=== PATIENT | male | born 1955 | race Two or more races ===

== ENCOUNTER 2016-05-08 11:20 | Emergency (ER) | payer OTHER ==
[~2016-05-08] VITALS: Ht 160 cm; Wt 68.0 kg
[~2016-05-08 11:20] MED LIST: ASPI81TA2 PO; ATEN25TA PO; ATOR80TA PO; CLOP75TA2 PO; LOSA25TA13 PO
--- NOTE | 2016-05-08 11:30 | NUR ---
BIB SON, CC: RIGHT LOWER ABDOMINAL PAIN, CT:05/01: NO ACUTE ABNORMALITY. NAD NOTED. SEEN BY MD AT BS. VSS. DENIES TRAUMA. SAFETY AND COMFORT MEASURES PROVIDED. WILL MONITOR.
[2016-05-08] MEDS ORDERED: TRAM50TA2 PO (11:42)
[2016-05-08] MEDS ORDERED: IBUP-23 PO (11:42)
--- NOTE | 2016-05-08 11:48 | NUR ---
EKG DONE AT BS.
[2016-05-08 11:55] LABS: BASOPHILS # (AUTO) 0.1 /CMM (0.0-0.2); BASOPHILS % (AUTO) 0.7 % (0.0-2.0); EOSINOPHILS # (AUTO) 0.3 /CMM (0.0-0.7); EOSINOPHILS % (AUTO) 4.1 % (0.0-6.0); HEMATOCRIT 46 % (39-51); HEMOGLOBIN 14.7 g/dL (13.5-17.5); LYMPHOCYTES # (AUTO) 2.1 /CMM (0.8-4.8); LYMPHOCYTES % (AUTO) 28.7 % (20.0-44.0); MEAN CORPUSCULAR HEMOGLOBIN 26 PG (26.0-33.0); MEAN CORPUSCULAR HGB CONC 32 g/dl (31.0-36.0); MEAN CORPUSCULAR VOLUME 83 fL (80-96); MONOCYTES # (AUTO) 0.6 /CMM (0.1-1.30); MONOCYTES % (AUTO) 7.7 % (2.0-12.0); NEUTROPHILS # (AUTO) 4.1 /CMM (1.8-8.9); NEUTROPHILS % (AUTO) 58.8 % (43.0-81.0); PLATELET COUNT (AUTO) 230 /CMM (150-450); RDW COEFFICIENT OF VARIATION 14.2 (11.5-15.0); RED BLOOD CELL COUNT(AUTO) 5.59 MIL/uL (4.5-6.0); WHITE BLOOD COUNT (AUTO) 7.2 K/uL (4.3-11.0)
[2016-05-08 12:05] LABS: CALCIUM, SERUM 9.4 mg/dL (8.5-10.1); CARBON DIOXIDE 28 mmol/L (21-32); CHLORIDE 104 mmol/L (98-107); CREATININE 1.2 mg/dL (0.6-1.3); GFR 62 mL/min (>60); GLUCOSE 97 mg/dL (74-106); POTASSIUM 4.4 mmol/L (3.5-5.1); SODIUM SERUM 139 mmol/L (136-145); UREA NITROGEN, BLOOD 15 mg/dL (7-18)
[2016-05-08 12:09] LABS: INR 0.96 (0.87-1.13)
[2016-05-08 12:11] LABS: ALANINE AMINOTRANSFERASE 24 U/L (12-78); ALBUMIN 3.7 g/dL (3.4-5.0); ALKALINE PHOSPHATASE 60 U/L (46-116); ASPARTATE AMINOTRANSFERASE 20 U/L (15-37); BILIRUBIN,DIRECT 0.1 mg/dL (0.0-0.2); BILIRUBIN,TOTAL 0.7 mg/dL (0.2-1.0); LIPASE 455 U/L (73-393)
[2016-05-08 12:13] LABS: TROPONIN I < 0.017 ng/mL (0.00-0.056)
--- NOTE | 2016-05-08 12:17 | NUR ---
URINE SAMPLE OBTAINED, SENT.
[2016-05-08 12:23] LABS: APPEARANCE,URINE Clear (CLEAR); BILIRUBIN,URINE Negative (NEGATIVE); BLOOD, URINE Negative Ery/uL (NEGATIVE); COLOR,URINE Light yellow (YELLOW); KETONES,URINE Negative (NEGATIVE); LEUKOCYTE ESTERASE ,URINE Negative (NEGATIVE); NITRITE, URINE Negative (NEGATIVE); PH,URINE 6.5 (5.0-8.0); PROTEIN,URINE Negative (NEGATIVE); UGLUCOSE Negative (NEGATIVE); UROBILINOGEN,URINE 0.2 EU/dL (0.2)
[2016-05-08 13:01] VITALS: BP 148/80
--- NOTE | 2016-05-08 13:01 | NUR ---
Patient discharged to home in stable condition. Written and verbal after care instructions given. Patient verbalizes understanding of instruction.
== END 2016-05-08 13:02 | disposition home or self-care (01) ==
LOC: ER 11:22
DX: R10.31 Right lower quadrant pain (principal); I10 Essential (primary) hypertension; F17.200 Nicotine dependence, unspecified, uncomplicated; Z95.5 Presence of coronary angioplasty implant and graft; Z79.82 Long term (current) use of aspirin
CPT/HCPCS: 36415; 80048; 80076; 81001; 83690; 84484; 85025; 85730; 93005; 99285; A4606; Z7610; 81000-TC

== ENCOUNTER 2017-02-17 10:44 | Emergency (ER) | payer OTHER ==
[~2017-02-17] VITALS: Ht 154.9 cm; Wt 59.0 kg
[~2017-02-17 10:44] MED LIST changes: +ASPI-1169 PO; -ASPI81TA2 PO; -CLOP75TA2 PO; +IBUP-23 PO; +TRAM50TA2 PO
--- NOTE | 2017-02-17 11:30 | NUR ---
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 PATIENT IS AFEBRILE. VSS
[2017-02-17] MEDS ORDERED: IBUPROFEN 600 MG TABLET PO ONE ×2 (12:27→12:30)
[2017-02-17] MEDS ORDERED: IPRATROPIUM NEB FS 0.5 MG/2.5 ML AMPUL.NEB NEB ONE (13:00)
[2017-02-17] MEDS ORDERED: ALBUTEROL FS 2.5 MG/3 ML VIAL.NEB NEB ONE (13:00)
[2017-02-17] MEDS ORDERED: ALBUTEROL FS 2.5 MG/3 ML VIAL.NEB ONE (13:01)
[2017-02-17] MEDS ORDERED: IPRATROPIUM NEB FS 0.5 MG/2.5 ML AMPUL.NEB ONE (13:01)
--- NOTE | 2017-02-17 13:19 | NUR ---
RT AWARE OF BREATHING TX
--- NOTE | 2017-02-17 13:38 | NUR ---
Patient discharged to home in stable condition. Written and verbal after care instructions given. Patient verbalizes understanding of instruction.
[2017-02-17 13:39] VITALS: BP 114/77
== END 2017-02-17 13:41 | disposition home or self-care (01) ==
LOC: ER 10:45
DX: J10.1 Influenza due to other identified influenza virus with other respiratory manifestations (principal); J45.909 Unspecified asthma, uncomplicated; F17.200 Nicotine dependence, unspecified, uncomplicated; I10 Essential (primary) hypertension; K21.9 Gastro-esophageal reflux disease without esophagitis; Z79.82 Long term (current) use of aspirin
CPT/HCPCS: 71010; 87804; 94640; 99285; A4606; Z7610; 87400

== ENCOUNTER 2017-08-13 11:23 | Emergency (ER) | payer OTHER ==
[~2017-08-13] VITALS: Ht 154.9 cm; Wt 59.0 kg
--- NOTE | 2017-08-13 11:56 | NUR ---
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 NO TRAUMA. NAD VSS RR EVEN AND UNLABORED. KEPT WARM AND COMFORTABLE. SEEN AND EVALUATED BY ABI OROZCO
[2017-08-13] MEDS ORDERED: KETOROLAC TROMETHAMINE INJ 30 MG/ML VIAL ONE (11:59)
[2017-08-13] MEDS ORDERED: HYDROCODONE/APAP 5/325MG 1 EACH TABLET ONE (11:59)
[2017-08-13] MEDS ORDERED: KETOROLAC TROMETHAMINE INJ 60 MG/2 ML VIAL IM ONE (12:00)
[2017-08-13] MEDS ORDERED: HYDROCODONE/APAP 5/325MG 1 EACH TABLET PO ONE (12:00)
--- NOTE | 2017-08-13 12:01 | NUR ---
Medicated as ordered.
[2017-08-13 12:09] VITALS: BP 148/84
--- NOTE | 2017-08-13 12:09 | NUR ---
Patient discharged to home in stable condition. Written and verbal after care instructions given. Patient and son verbalizes understanding of instruction. left instable condition.
== END 2017-08-13 12:10 | disposition home or self-care (01) ==
LOC: ER 11:25
DX: M25.512 Pain in left shoulder (principal); K21.9 Gastro-esophageal reflux disease without esophagitis; I10 Essential (primary) hypertension; F17.200 Nicotine dependence, unspecified, uncomplicated; Z79.82 Long term (current) use of aspirin
CPT/HCPCS: 96372; 99283; A4606; J1885; Z7610